=== PATIENT | female | born 1995 | race African-American/Black ===

== ENCOUNTER 2022-04-04 22:19 | Emergency (ER) | payer OTHER ==
[~2022-04-04] VITALS: Ht 180.3 cm; Wt 115.2 kg
[2022-04-04 23:41] VITALS: BP 149/79
[2022-04-04] MEDS ORDERED: TRIA80OI TP (23:58)
[2022-04-04] MEDS ORDERED: [UNRECOGNIZED DRUG - CODE] TP (23:58)
== END 2022-04-05 00:05 | disposition home or self-care (01) ==
LOC: ER 22:26
DX: L30.9 Dermatitis, unspecified (principal); Z60.2 Problems related to living alone; Z79.899 Other long term (current) drug therapy